=== PATIENT | male | born 1945 | race Caucasian/White ===

== ENCOUNTER → 2021-08-11 09:07 | Outpatient (CLI) | payer OTHER, SELFPAY ==
--- NOTE | 2021-08-11 09:24 | CT_ITS ---
STUDY: CTA CHEST REASON FOR EXAM: Male, 75 years old. lump of chest RADIATION DOSAGE (If Supplied By Facility): CTDIvol = ( 9.34 ) mGy, DLP = ( 304 ) mGycm TECHNIQUE: The examination was performed with the intravenous administration of IV 100mL Isovue-[id number]. Post-processing of the angiographic images was performed, with multiplanar reformation and 3D reconstruction. Individualized dose optimization techniques were used for this CT. COMPARISON: None. FINDINGS: Normal enhancement of the main pulmonary artery and right and left pulmonary arteries. Normal enhancement of the bilateral peripheral pulmonary arteries. There is no demonstrated pulmonary embolism. Normal thoracic aorta and visualized great vessels. There is no demonstrated aortic dissection. Normal heart and pericardium. There are calcifications of the coronary arteries. Normal mediastinum. Normal hilar regions. Normal visualized trachea and bronchi. The lungs are hyper expanded, with flattening of the hemidiaphragms. There are central emphysematous blebs in the bilateral lungs. Calcified granuloma of the right middle lobe. Normal pleura. There are subcentimeter (short axis) bilateral axillary lymph nodes. No dominant mauricio mass. There are degenerative changes of thoracic spine. Normal visualized upper abdomen. CT/CTA Chest W/WO Contrast IMPRESSION: 1. No central or segmental pulmonary embolism. Electronically Signed: Ben Johnson MD ([facility]) at 10:10 EST , Service support ,
[2021-08-11 09:36] LABS: CREATININE FINGERSTICK 0.6 mg/dL (0.70-1.30); EGFR FINGERSTICK > 60.0000 mL/min (>60)
== END ==
PROVIDERS: Referring Provider Physician Assistant Surgical; Visit Provider Physician Assistant Surgical
DX: N63.20 Unspecified lump in the left breast, unspecified quadrant (principal)
CPT/HCPCS: 71275